=== PATIENT | male | born 1970 | race Caucasian/White ===

== ENCOUNTER 2017-03-21 09:40 | Observation (INO) ==
[2017-03-21] MEDS ORDERED: MORPHINE 2 MG/1 ML SYRINGE IV PRN (09:55)
[2017-03-21] MEDS ORDERED: ENOXAPARIN 100 MG/ML SYRINGE SUBCUT STA (09:55)
[2017-03-21] MEDS ORDERED: ASPIRIN 325 MG TABLET PO STA (09:55)
[2017-03-21] MEDS ORDERED: NITROGLYCERIN 2% OINT 1 INCH/GM PACK TOP STA (09:55)
[2017-03-21] MEDS ORDERED: ONDANSETRON 4 MG/2 ML VIAL IV PRN ×2 (09:55→11:37)
[2017-03-21] MEDS ORDERED: MORPHINE 2 MG/1 ML SYRINGE ONE (10:10)
[2017-03-21] MEDS ORDERED: NITROGLYCERIN 2% OINT 1 INCH/GM PACK TOP ONE (10:10)
[2017-03-21] MEDS ORDERED: ENOXAPARIN 120 MG/0.8 ML SYRINGE SUBCUT ONE (10:10)
[2017-03-21] MEDS ORDERED: ONDANSETRON 4 MG/2 ML VIAL ONE (10:10)
[2017-03-21] MEDS ORDERED: METOPROLOL TARTRATE 5 MG/5 ML VIAL IV STA (10:11)
[2017-03-21] MEDS ORDERED: METOPROLOL TARTRATE 5 MG/5 ML VIAL IV ONE (10:18)
[2017-03-21 10:36] LABS: Bilirubin,Total 0.9 MG/DL (0.2-1.0); Calcium 9.1 MG/DL (8.5-10.1); Osmolality,Calculated 278.5 MOS/KG (273-304); Potassium 3.7 MMOL/L (3.5-5.1); Total Protein 7.1 G/DL (6.4-8.3)
[2017-03-21 10:40] LABS: PT Patient Result 10.9 SECS; Partial Thromboplastin Time 24.8 SECS (0-40)
[2017-03-21 10:53] LABS: Basophils # 0.1 10*3/uL (0.0-0.2); Basophils % 0.9 % (0.0-0.8); Eosinophils # 0.2 10*3/uL (0.0-0.87); Eosinophils % 3.6 % (0.00-10.9); Hematocrit 44.5 VOL% (42.0-52.0); Immature Granulocytes % 0.6 %; Immature Granulocytes Absolute 0.04 #; Lymphocytes # 1.8 10*3/uL (1.4-4.0); Lymphocytes % 28.9 % (21.2-54.2); Mean Corpuscular HGB Conc 37.3 GM/DL (32-36); Mean Corpuscular Hemoglobin 32 PG (27-34); Mean Corpuscular Volume 85.4 FL (87-102); Mean Platelet Volume 10.9 FL (9.6-12.0); Monocytes # 0.4 10*3/uL (0.11-0.8); Monocytes % 6.6 % (1.7-12.7); Neutrophils # 3.8 10*3/uL (1.4-7.4); Neutrophils % 59.4 % (38.7-73.9); Platelet Count 169 T/CUMM (130-400); Red Blood Count 5.21 MC/CUMM (3.8-5.5); Red Cell Distribution Width 12.7 % (9.3-17.3); White Blood Count 6.4 T/CUMM (4-12)
[2017-03-21 10:54] LABS: Hemoglobin 16.6 GM/DL (14.0-18.0)
[2017-03-21] MEDS ORDERED: POTASSIUM CHLORIDE RIDER 10 MEQ in PREMIX 1 EACH IV PRN ×2 (11:05→11:48)
[2017-03-21] MEDS ORDERED: MAGNESIUM SULF RIDER 2 GM in PREMIX 1 EACH IV PRN ×3 (11:05→17:13)
[2017-03-21] MEDS ORDERED: SODIUM CHLORIDE 0.9% 1,000 ML IV SCH ×3 (11:30→17:13)
[2017-03-21] MEDS ORDERED: CARVEDILOL 3.125 MG TABLET PO SCH (11:30)
[2017-03-21] MEDS ORDERED: ATORVASTATIN 40 MG TABLET PO STA (11:33)
[2017-03-21] MEDS ORDERED: guaiFENesin/DM ER 600-30 MG TABLET PO PRN (11:37)
[2017-03-21] MEDS ORDERED: BISACODYL 5 MG TABLET PO PRN (11:37)
[2017-03-21] MEDS ORDERED: ZALEPLON 5 MG CAPSULE PO PRN (11:37)
[2017-03-21] MEDS ORDERED: ACETAMINOPHEN 325 MG TABLET PO PRN (11:37)
[2017-03-21] MEDS: SODIUM CHLORIDE 0.9% 1,000 ML IV SCH ×2 (11:42→19:45)
[2017-03-21] MEDS ORDERED: diphenhydrAMINE CAP 25 MG CAPSULE PO ONE (12:00)
[2017-03-21] MEDS ORDERED: DIAZEPAM 5 MG TABLET PO ONE (12:00)
[2017-03-21] MEDS ORDERED: NITROGLYCERIN 2% OINT 1 INCH/GM PACK TOP SCH (12:00)
[2017-03-21] MEDS ORDERED: DIAZEPAM 5 MG TABLET ONE (13:19)
[2017-03-21] MEDS ORDERED: diphenhydrAMINE CAP 50 MG CAPSULE ONE (13:19)
[2017-03-21] MEDS ORDERED: LIDOCAINE 100 MG/5 ML SYRINGE ONE (13:35)
[2017-03-21] MEDS ORDERED: LIDOCAINE 1% 20 ML VIAL ONE ×3 (13:35→13:42)
[2017-03-21] MEDS ORDERED: MEPERIDINE 25 MG/1 ML VIAL ONE (13:46)
[2017-03-21] MEDS ORDERED: MIDAZOLAM 2 MG/2 ML VIAL ONE (13:47)
[2017-03-21] MEDS ORDERED: ADENOSINE 90 MG/30 ML VIAL IV ONE (14:29)
[2017-03-21] MEDS ORDERED: TIROFIBAN 5,000 MCG/100 ML PREMIX IV ONE (14:46)
[2017-03-21] MEDS ORDERED: TIROFIBAN 5,000 MCG/100 ML PREMIX IV SCH (14:54)
[2017-03-21] MEDS ORDERED: TICAGRELOR 90 MG TABLET ONE (15:09)
[2017-03-21] MEDS ORDERED: HYDROmorphone 2 MG/1 ML VIAL IV PRN (15:29)
[2017-03-21] MEDS ORDERED: ACETAMINOPHEN/CODEINE 300-30 MG TABLET PO PRN (15:29)
[2017-03-21] MEDS ORDERED: NITROGLYCERIN SL 0.4 MG TABLET SL PRN (17:13)
[2017-03-21] MEDS ORDERED: traMADol 50 MG TABLET PO SCH (17:13)
[2017-03-21] MEDS ORDERED: MAGNESIUM SULF RIDER 4 GM in PREMIX 1 EACH IV PRN (17:13)
[2017-03-21] MEDS ORDERED: GABAPENTIN 100 MG CAPSULE PO SCH (17:13)
[2017-03-21] MEDS ORDERED: LORATADINE 10 MG TABLET PO PRN (17:13)
[2017-03-21 17:22] LABS: Troponin I Only 0.026 NG/ML (0.00-0.045)
[2017-03-21 18:29] LABS: Albumin 3.7 G/DL (3.4-5.0); Calcium 8.2 MG/DL (8.5-10.1); Osmolality,Calculated 278.5 MOS/KG (273-304); Potassium 3.9 MMOL/L (3.5-5.1); Total Protein 6.9 G/DL (6.4-8.3)
[2017-03-21] MEDS ORDERED: NAPROXEN 250 MG TABLET PO ONE (19:11)
[2017-03-21] MEDS: GABAPENTIN 300 MG CAPSULE PO SCH ×2 (19:45→22:07)
[2017-03-21] MEDS ORDERED: CAPTOPRIL 12.5 MG TABLET PO SCH (21:00)
[2017-03-21] MEDS ORDERED: SIMVASTATIN 20 MG TABLET PO SCH (21:00)
[2017-03-21] MEDS ORDERED: ACETAMINOPHEN 325 MG TABLET PO SCH ×2 (21:00)
[2017-03-21] MEDS ORDERED: SERTRALINE 25 MG TABLET PO SCH (21:00)
[2017-03-21] MEDS: TICAGRELOR 90 MG TABLET PO SCH (22:07)
[2017-03-21] MEDS: CAPTOPRIL 6.25 MG TABLET PO SCH (22:07)
[2017-03-21] MEDS: ACETAMINOPHEN 325 MG TABLET PO SCH (22:08)
[2017-03-21] MEDS: CARVEDILOL 3.125 MG TABLET PO SCH (22:14)
[2017-03-21] MEDS: traMADol 50 MG TABLET PO SCH (22:15)
[2017-03-22] MEDS: SODIUM CHLORIDE 0.9% 1,000 ML IV SCH (00:47)
[2017-03-22 01:30] LABS: Basophils # 0.1 10*3/uL (0.0-0.2); Basophils % 0.8 % (0.0-0.8); Eosinophils # 0.2 10*3/uL (0.0-0.87); Eosinophils % 1.6 % (0.00-10.9); Hematocrit 40.8 VOL% (42.0-52.0); Hemoglobin 14.7 GM/DL (14.0-18.0); Immature Granulocytes % 0.5 %; Immature Granulocytes Absolute 0.05 #; Lymphocytes # 2.6 10*3/uL (1.4-4.0); Lymphocytes % 24.5 % (21.2-54.2); Mean Corpuscular Hemoglobin 31 PG (27-34); Mean Corpuscular Volume 86.6 FL (87-102); Mean Platelet Volume 10.7 FL (9.6-12.0); Monocytes # 0.8 10*3/uL (0.11-0.8); Monocytes % 7.2 % (1.7-12.7); Neutrophils # 6.8 10*3/uL (1.4-7.4); Neutrophils % 65.4 % (38.7-73.9); Platelet Count 150 T/CUMM (130-400); Red Blood Count 4.71 MC/CUMM (3.8-5.5); White Blood Count 10.5 T/CUMM (4-12)
[2017-03-22 01:59] LABS: Troponin I Only 0.026 NG/ML (0.00-0.045)
[2017-03-22 02:01] LABS: Albumin 3.5 G/DL (3.4-5.0); Bilirubin,Total 0.9 MG/DL (0.2-1.0); Calcium 7.9 MG/DL (8.5-10.1); Osmolality,Calculated 280.3 MOS/KG (273-304); Potassium 3.8 MMOL/L (3.5-5.1); Risk Ratio 6.38; VLDL CHOLESTEROL 51.8 MG/DL
[2017-03-22 02:21] LABS: Albumin 3.5 G/DL (3.4-5.0); Bilirubin,Direct 0.2 MG/DL (0.0-0.20); Bilirubin,Indirect 0.6 MG/DL (0.0-1.0); Bilirubin,Total 0.8 MG/DL (0.2-1.0); Total Protein 6.2 G/DL (6.4-8.3)
[2017-03-22] MEDS ORDERED: LEVOTHYROXINE 25 MCG TABLET PO SCH (07:00)
[2017-03-22 08:56] LABS: Troponin I Only < 0.015 NG/ML (0.00-0.045)
[2017-03-22] MEDS: TICAGRELOR 90 MG TABLET PO SCH (08:57)
[2017-03-22] MEDS: traMADol 50 MG TABLET PO SCH (08:57)
[2017-03-22] MEDS: ACETAMINOPHEN 325 MG TABLET PO SCH (08:57)
[2017-03-22] MEDS: CARVEDILOL 3.125 MG TABLET PO SCH (08:57)
[2017-03-22] MEDS: CAPTOPRIL 6.25 MG TABLET PO SCH (08:57)
[2017-03-22] MEDS: GABAPENTIN 300 MG CAPSULE PO SCH (08:58)
[2017-03-22] MEDS ORDERED: ASPIRIN CHEW 81 MG TABLET PO SCH (09:00)
[2017-03-22] MEDS ORDERED: FUROSEMIDE 20 MG TABLET PO SCH ×2 (09:00)
[2017-03-22] MEDS ORDERED: PANTOPRAZOLE 40 MG TABLET PO SCH (09:00)
[2017-03-22 11:50] VITALS: BP 131/80
[2017-03-22] MEDS ORDERED: ROSUVASTATIN 10 MG TABLET PO SCH (21:00)
== END 2017-03-22 15:27 | disposition home or self-care (01) ==
LOC: EDUNIT# → EDBD → N.ED 09:40 → INTOOBSV 10:42 → N.TELES 13:28
PROVIDERS: ADMIT Internal Medicine Cardiovascular Disease; ATTEND Internal Medicine Cardiovascular Disease
PROC: CLCCHCL (ICD-10-PCS; 2017-03-21 14:15)

== ENCOUNTER 2019-06-03 15:34 | Observation (INO) ==
[2019-06-03] MEDS ORDERED: ASPIRIN 325 MG TABLET PO STA (16:01)
[2019-06-03] MEDS ORDERED: NITROGLYCERIN SL 0.4 MG TABLET SL PRN (16:01)
[2019-06-03] MEDS ORDERED: ENOXAPARIN 100 MG/ML SYRINGE SUBCUT STA (16:01)
[2019-06-03 16:10] LABS: Basophils # 0.1 10*3/uL (0.0-0.2); Basophils % 1.1 % (0.0-0.8); Eosinophils # 0.3 10*3/uL (0.0-0.87); Eosinophils % 3.2 % (0.00-10.9); Hematocrit 43.3 VOL% (42.0-52.0); Hemoglobin 15.1 GM/DL (14.0-18.0); Immature Granulocytes % 0.2 %; Immature Granulocytes Absolute 0.02 #; Lymphocytes # 2.7 10*3/uL (1.4-4.0); Lymphocytes % 31.9 % (21.2-54.2); Mean Corpuscular HGB Conc 34.9 GM/DL (32-36); Mean Corpuscular Volume 86.4 FL (87-102); Mean Platelet Volume 10.4 FL (9.6-12.0); Monocytes % 8.6 % (1.7-12.7); Platelet Count 150 T/CUMM (130-400); Red Blood Count 5.01 MC/CUMM (3.8-5.5); Red Cell Distribution Width 13.2 % (9.3-17.3); White Blood Count 8.4 T/CUMM (4-12)
[2019-06-03 16:38] LABS: Osmolality,Calculated 272.8 MOS/KG (273-304)
[2019-06-03] MEDS ORDERED: ONDANSETRON 4 MG/2 ML VIAL IV PRN (17:44)
[2019-06-03] MEDS ORDERED: MAGNESIUM SULF RIDER 4 GM in PREMIX 1 EACH IV PRN (17:44)
[2019-06-03] MEDS ORDERED: MORPHINE 4 MG/1 ML VIAL IV PRN (17:44)
[2019-06-03] MEDS ORDERED: ZALEPLON 5 MG CAPSULE PO PRN (17:44)
[2019-06-03] MEDS ORDERED: POTASSIUM CHLORIDE 20 MEQ TABLET PO PRN (17:44)
[2019-06-03] MEDS ORDERED: MAGNESIUM SULF RIDER 2 GM in PREMIX 1 EACH IV PRN (17:44)
[2019-06-03] MEDS: carvediloL 3.125 MG TABLET PO SCH (21:04)
[2019-06-03] MEDS: IMIPRAMINE 25 MG TABLET PO SCH (21:04)
[2019-06-03] MEDS: SODIUM CHLORIDE 0.45% 1,000 ML IV SCH (21:04)
[2019-06-03 21:24] LABS: Apearance,Urine CLEAR (Clear); Bilirubin,Urine Negative (Negative); Blood, Urine Negative (Negative); Glucose,Urine (UA) Negative (Negative); Hyaline Casts,Urine 1 /LPF (0-3); Ketones,Urine Negative (Negative); Mucus,Urine Many /LPF (Occasional); Nitrite,Urine Negative (Negative); Protein,Urine Negative; Squamous Epithelial Cell,Urine Occasional /HPF (0-10); Urine Color Yellow (Yellow); Urine Specific Gravity 1.023 (1.001-1.035); WBC,Urine <1 /HPF (0-6)
[2019-06-04] MEDS: SODIUM CHLORIDE 0.45% 1,000 ML IV SCH ×3 (04:37→14:09)
[2019-06-04] MEDS ORDERED: ENOXAPARIN 100 MG/ML SYRINGE SUBCUT SCH (05:00)
[2019-06-04] MEDS: LEVOTHYROXINE 25 MCG TABLET PO SCH (06:06)
[2019-06-04] MEDS ORDERED: CLOPIDOGREL 75 MG TABLET PO SCH (09:00)
[2019-06-04] MEDS ORDERED: DIAZEPAM 5 MG TABLET PO ONE (09:01)
[2019-06-04] MEDS ORDERED: MAGNESIUM SULF RIDER 2 GM in PREMIX 1 EACH IV PRN (09:01)
[2019-06-04] MEDS ORDERED: POTASSIUM CHLORIDE RIDER 10 MEQ in PREMIX 1 EACH IV PRN (09:01)
[2019-06-04] MEDS ORDERED: diphenhydrAMINE CAP 25 MG CAPSULE PO ONE (09:01)
[2019-06-04] MEDS ORDERED: ASPIRIN CHEW 81 MG TABLET PO ONE (09:16)
[2019-06-04] MEDS ORDERED: ASPIRIN 325 MG TABLET ONE (09:28)
[2019-06-04] MEDS ORDERED: LIDOCAINE 1% 20 ML VIAL ONE (10:00)
[2019-06-04] MEDS ORDERED: MIDAZOLAM 2 MG/2 ML VIAL ONE (10:12)
[2019-06-04] MEDS ORDERED: fentaNYL 100 MCG/2 ML VIAL ONE (10:13)
[2019-06-04] MEDS ORDERED: TIROFIBAN 5,000 MCG/100 ML PREMIX IV ONE (11:02)
[2019-06-04] MEDS ORDERED: HEPARIN 5,000 UNIT/1 ML VIAL ONE (11:02)
[2019-06-04] MEDS: TIROFIBAN 5,000 MCG/100 ML PREMIX IV SCH ×2 (11:10→16:08)
[2019-06-04] MEDS ORDERED: TICAGRELOR 90 MG TABLET ONE (11:38)
[2019-06-04] MEDS: PANTOPRAZOLE 40 MG TABLET PO SCH (12:12)
[2019-06-04] MEDS: carvediloL 3.125 MG TABLET PO SCH ×2 (12:12→16:08)
[2019-06-04] MEDS: FUROSEMIDE 20 MG TABLET PO SCH (12:12)
[2019-06-04] MEDS: ROSUVASTATIN 10 MG TABLET PO SCH (12:12)
[2019-06-04] MEDS: ACETAMINOPHEN 325 MG TABLET PO SCH ×2 (12:13→22:46)
[2019-06-04] MEDS: LOSARTAN 25 MG TABLET PO SCH (12:13)
[2019-06-04 13:51] LABS: Risk Ratio 5.06
[2019-06-04 13:52] LABS: Troponin I < 0.015 NG/ML (0.00-0.045)
[2019-06-04] MEDS: GABAPENTIN 100 MG CAPSULE PO SCH ×2 (16:08→22:47)
[2019-06-04 20:48] LABS: Troponin I < 0.015 NG/ML (0.00-0.045)
[2019-06-04 21:47] LABS: Hematocrit 43.7 VOL% (42.0-52.0); Hemoglobin 15.5 GM/DL (14.0-18.0)
[2019-06-04] MEDS: IMIPRAMINE 25 MG TABLET PO SCH (22:47)
[2019-06-04] MEDS: TICAGRELOR 90 MG TABLET PO SCH (22:47)
[2019-06-05] MEDS: TIROFIBAN 5,000 MCG/100 ML PREMIX IV SCH ×4 (00:15→16:47)
[2019-06-05 04:56] LABS: Basophils # 0.1 10*3/uL (0.0-0.2); Basophils % 0.7 % (0.0-0.8); Eosinophils # 0.3 10*3/uL (0.0-0.87); Eosinophils % 3.2 % (0.00-10.9); Hematocrit 43.9 VOL% (42.0-52.0); Hemoglobin 15.2 GM/DL (14.0-18.0); Immature Granulocytes % 0.4 %; Immature Granulocytes Absolute 0.03 #; Lymphocytes # 2.1 10*3/uL (1.4-4.0); Lymphocytes % 25.4 % (21.2-54.2); Mean Corpuscular HGB Conc 34.6 GM/DL (32-36); Mean Corpuscular Volume 86.6 FL (87-102); Mean Platelet Volume 10.9 FL (9.6-12.0); Monocytes % 8.4 % (1.7-12.7); Neutrophils % 61.9 % (38.7-73.9); Platelet Count 117 T/CUMM (130-400); Red Blood Count 5.07 MC/CUMM (3.8-5.5); Red Cell Distribution Width 13.4 % (9.3-17.3); White Blood Count 8.4 T/CUMM (4-12)
[2019-06-05 05:24] LABS: Calcium 8.5 MG/DL (8.5-10.1); Osmolality,Calculated 273.7 MOS/KG (273-304)
[2019-06-05 05:26] LABS: Troponin I < 0.015 NG/ML (0.00-0.045)
[2019-06-05] MEDS: LEVOTHYROXINE 25 MCG TABLET PO SCH (06:21)
[2019-06-05] MEDS ORDERED: ASPIRIN EC 81 MG TABLET PO SCH (09:00)
[2019-06-05] MEDS: GABAPENTIN 100 MG CAPSULE PO SCH ×2 (09:26→16:35)
[2019-06-05] MEDS: LOSARTAN 25 MG TABLET PO SCH (09:26)
[2019-06-05] MEDS: carvediloL 3.125 MG TABLET PO SCH ×2 (09:26→16:35)
[2019-06-05] MEDS: FUROSEMIDE 20 MG TABLET PO SCH (09:26)
[2019-06-05] MEDS: ACETAMINOPHEN 325 MG TABLET PO SCH (09:26)
[2019-06-05] MEDS: ROSUVASTATIN 10 MG TABLET PO SCH (09:26)
[2019-06-05] MEDS: TICAGRELOR 90 MG TABLET PO SCH (09:27)
[2019-06-05] MEDS: PANTOPRAZOLE 40 MG TABLET PO SCH (09:27)
[2019-06-05 15:46] VITALS: BP 137/71
== END 2019-06-05 18:22 | disposition home or self-care (01) ==
LOC: EDBD → EDUNIT# → N.ED 15:34 → N.EDINP 15:34 → N.2W 19:17 → N.TELEN 22:22
PROVIDERS: ADMIT Internal Medicine Cardiovascular Disease; ATTEND Internal Medicine Cardiovascular Disease
PROC: CLCCHCL (ICD-10-PCS; 2019-06-04 09:45)

== ENCOUNTER 2020-03-09 09:19 | Observation (INO) ==
[2020-03-09] MEDS ORDERED: NITROGLYCERIN 2% OINT 1 INCH/GM PACK TOP STA (09:43)
[2020-03-09] MEDS ORDERED: ASPIRIN 325 MG TABLET PO STA (09:43)
[2020-03-09] MEDS ORDERED: NITROGLYCERIN SL 0.4 MG TABLET SL PRN ×2 (09:43→10:54)
[2020-03-09 09:56] LABS: PT Patient Result 11.1 SECS (9.8-11.9); Partial Thromboplastin Time 27.9 SECS (23.9-33.8)
[2020-03-09 10:05] LABS: Basophils # 0.1 10*3/uL (0.0-0.2); Basophils % 1.2 % (0.0-0.8); Eosinophils # 0.3 10*3/uL (0.0-0.87); Eosinophils % 4.3 % (0.00-10.9); Immature Granulocytes % 0.3 %; Immature Granulocytes Absolute 0.02 #; Lymphocytes # 2.6 10*3/uL (1.4-4.0); Lymphocytes % 33.1 % (21.2-54.2); Mean Corpuscular HGB Conc 36.7 GM/DL (32-36); Mean Corpuscular Volume 83.2 FL (87-102); Mean Platelet Volume 10.4 FL (9.6-12.0); Monocytes % 6.8 % (1.7-12.7); Neutrophils % 54.3 % (38.7-73.9); Platelet Count 152 T/CUMM (130-400); Red Blood Count 5.41 MC/CUMM (3.8-5.5); Red Cell Distribution Width 13.2 % (9.3-17.3); White Blood Count 7.8 T/CUMM (4-12)
[2020-03-09 10:06] LABS: Hemoglobin 16.5 GM/DL (14.0-18.0)
[2020-03-09] MEDS ORDERED: ENOXAPARIN 120 MG/0.8 ML SYRINGE SUBCUT STA (10:33)
[2020-03-09 10:40] LABS: Albumin 4.1 G/DL (3.4-5.0); Bilirubin,Total 1.7 MG/DL (0.2-1.0); Calcium 8.8 MG/DL (8.5-10.1); Osmolality,Calculated 281.3 MOS/KG (273-304); Total Protein 7.8 G/DL (6.4-8.3)
[2020-03-09] MEDS ORDERED: DOCUSATE SODIUM 100 MG CAPSULE PO PRN (10:52)
[2020-03-09] MEDS ORDERED: ONDANSETRON 4 MG/2 ML VIAL IV PRN ×2 (10:52→10:53)
[2020-03-09] MEDS ORDERED: MAGNESIUM SULF RIDER 4 GM in PREMIX 1 EACH IV PRN ×2 (10:52→10:53)
[2020-03-09] MEDS ORDERED: ALUMINUM/MAGNES/SIMETH MAX STR 30 ML UDCUP PO PRN (10:52)
[2020-03-09] MEDS ORDERED: MAGNESIUM SULF RIDER 2 GM in PREMIX 1 EACH IV PRN ×2 (10:52→10:53)
[2020-03-09] MEDS ORDERED: MORPHINE 4 MG/1 ML VIAL IV PRN ×2 (10:52→10:53)
[2020-03-09] MEDS ORDERED: PROMETHAZINE 25 MG TABLET PO PRN (10:52)
[2020-03-09] MEDS ORDERED: ZALEPLON 5 MG CAPSULE PO PRN (10:52)
[2020-03-09] MEDS ORDERED: diphenhydrAMINE CAP 25 MG CAPSULE PO PRN (10:52)
[2020-03-09] MEDS ORDERED: hydrALAZINE 20 MG/1 ML VIAL IV PRN (10:52)
[2020-03-09] MEDS ORDERED: ACETAMINOPHEN 325 MG TABLET PO PRN (10:52)
[2020-03-09] MEDS ORDERED: guaiFENesin/DM ER 600-30 MG TABLET PO PRN (10:52)
[2020-03-09] MEDS ORDERED: POTASSIUM CHLORIDE 20 MEQ TABLET PO PRN (10:52)
[2020-03-09] MEDS ORDERED: SODIUM CHLORIDE 0.9% 1,000 ML IV SCH (11:00)
[2020-03-09] MEDS ORDERED: SODIUM CHLORIDE 0.45% 1,000 ML IV SCH (11:00)
[2020-03-09 12:21] LABS: Hepatitis B Core IgM Quant 0.18 Index; Hepatitis B Surface Ag Quant < 0.10 Index; Hepatitis B Surface Ag Result Negative (Negative); Hepatitis C Virus Ab Quant 0.09 Index; Hepatitis C Virus Ab Result Negative (Negative)
[2020-03-09 12:24] VITALS: BP 108/61
[2020-03-09] MEDS ORDERED: ACETAMINOPHEN 325 MG TABLET PO SCH (13:00)
[2020-03-09] MEDS ORDERED: GABAPENTIN 100 MG CAPSULE PO SCH (15:00)
[2020-03-09] MEDS ORDERED: KETOROLAC 30 MG/1 ML VIAL IV STA (15:04)
[2020-03-09] MEDS ORDERED: TICAGRELOR 90 MG TABLET PO SCH (21:00)
[2020-03-09] MEDS ORDERED: carvediloL 3.125 MG TABLET PO SCH (21:00)
[2020-03-09] MEDS ORDERED: IMIPRAMINE 25 MG TABLET PO SCH (21:00)
[2020-03-10] MEDS ORDERED: LEVOTHYROXINE 25 MCG TABLET PO SCH (07:00)
[2020-03-10] MEDS ORDERED: LOSARTAN 25 MG TABLET PO SCH (09:00)
[2020-03-10] MEDS ORDERED: GABAPENTIN 100 MG CAPSULE PO SCH (09:00)
[2020-03-10] MEDS ORDERED: ASPIRIN CHEW 81 MG TABLET PO SCH (09:00)
[2020-03-10] MEDS ORDERED: FUROSEMIDE 20 MG TABLET PO SCH (09:00)
[2020-03-10] MEDS ORDERED: ROSUVASTATIN 10 MG TABLET PO SCH (09:00)
[2020-03-10] MEDS ORDERED: PANTOPRAZOLE 40 MG TABLET PO SCH ×2 (09:00)
[2020-03-10] MEDS ORDERED: SERTRALINE 25 MG TABLET PO SCH (09:00)
== END 2020-03-09 16:11 | disposition home or self-care (01) ==
LOC: N.ED 09:19 → N.EDINP 09:19
PROVIDERS: ADMIT Internal Medicine Cardiovascular Disease; ATTEND Internal Medicine Cardiovascular Disease

== ENCOUNTER 2022-01-09 20:09 | Observation (INO) ==
[2022-01-09 20:40] LABS: Basophils # 0.1 10*3/uL (0.0-0.2); Basophils % 0.8 % (0.0-0.8); Eosinophils # 0.3 10*3/uL (0.0-0.87); Eosinophils % 3.2 % (0.00-10.9); Hemoglobin 16.1 GM/DL (14.0-18.0); Immature Granulocytes % 0.2 %; Immature Granulocytes Absolute 0.02 #; Lymphocytes # 3.2 10*3/uL (1.4-4.0); Lymphocytes % 31.9 % (21.2-54.2); Mean Corpuscular HGB Conc 35.8 GM/DL (32-36); Mean Corpuscular Volume 87.7 FL (87-102); Mean Platelet Volume 10.4 FL (9.6-12.0); Monocytes # 0.7 10*3/uL (0.11-0.8); Monocytes % 6.8 % (1.7-12.7); Neutrophils % 57.1 % (38.7-73.9); Platelet Count 123 T/CUMM (130-400); Red Blood Count 5.13 MC/CUMM (3.8-5.5); Red Cell Distribution Width 13.8 % (9.3-17.3); White Blood Count 9.9 T/CUMM (4-12)
[2022-01-09 20:51] LABS: INR 1.1; PT Patient Result 11.9 SECS (10.1-12.1)
[2022-01-09 20:58] LABS: Albumin 3.8 G/DL (3.4-5.0); Bilirubin,Total 1.4 MG/DL (0.20-1.00); Calcium 8.9 MG/DL (8.5-10.1); Potassium 3.6 MMOL/L (3.5-5.1); Total Protein 7.8 G/DL (6.4-8.2)
[2022-01-09] MEDS ORDERED: ONDANSETRON 4 MG/2 ML VIAL IV ONE (23:33)
[2022-01-09] MEDS ORDERED: MORPHINE 2 MG/1 ML SYRINGE IV STA (23:33)
[2022-01-10] MEDS ORDERED: MORPHINE 2 MG/1 ML SYRINGE IV PRN (01:29)
[2022-01-10] MEDS ORDERED: ONDANSETRON 4 MG/2 ML VIAL IV PRN (01:29)
[2022-01-10] MEDS: LEVOTHYROXINE 25 MCG TABLET PO SCH (05:57)
[2022-01-10 07:14] LABS: Albumin 3.2 G/DL (3.4-5.0); Bilirubin,Total 1.6 MG/DL (0.20-1.00); Calcium 8.8 MG/DL (8.5-10.1); Osmolality,Calculated 280.3 MOS/KG (273-304); Potassium 3.4 MMOL/L (3.5-5.1); Risk Ratio 5.87; Total Protein 6.9 G/DL (6.4-8.2); VLDL Cholesterol 31.4 MG/DL
[2022-01-10] MEDS ORDERED: POTASSIUM CHLORIDE RIDER 10 MEQ/100 ML PREMIX IV PRN ×2 (07:24→07:26)
[2022-01-10] MEDS ORDERED: MAGNESIUM SULF RIDER 2 GM/50 ML PREMIX IV PRN ×2 (07:24→07:26)
[2022-01-10] MEDS ORDERED: SODIUM CHLORIDE 0.9% 1,000 ML IV SCH (07:30)
[2022-01-10] MEDS ORDERED: HEPARIN/NACL 0.9% 2 UNITS/ML 2,000 UNIT/1,000 ML BAG IV ONE (07:57)
[2022-01-10] MEDS ORDERED: diphenhydrAMINE CAP 50 MG CAPSULE PO ONE (08:00)
[2022-01-10] MEDS ORDERED: DIAZEPAM 5 MG TABLET PO ONE (08:00)
[2022-01-10] MEDS ORDERED: NITROGLYCERIN DRIP 50 MG/250 ML BOTTLE IV ONE (08:22)
[2022-01-10] MEDS ORDERED: VERAPAMIL 5 MG/2 ML VIAL ONE (08:22)
[2022-01-10] MEDS ORDERED: MIDAZOLAM 2 MG/2 ML VIAL ONE (08:22)
[2022-01-10] MEDS ORDERED: fentaNYL 100 MCG/2 ML VIAL ONE (08:22)
[2022-01-10] MEDS ORDERED: ASPIRIN 325 MG TABLET ONE (08:38)
[2022-01-10] MEDS ORDERED: ENOXAPARIN 60 MG/0.6 ML SYRINGE ONE (08:52)
[2022-01-10] MEDS: PANTOPRAZOLE 40 MG TABLET PO SCH (10:23)
[2022-01-10] MEDS: FUROSEMIDE 20 MG TABLET PO SCH (10:24)
[2022-01-10] MEDS: LOSARTAN 25 MG TABLET PO SCH (10:24)
[2022-01-10] MEDS: CLOPIDOGREL 75 MG TABLET PO SCH (10:24)
[2022-01-10] MEDS: ASPIRIN CHEW 81 MG TABLET PO SCH (10:24)
[2022-01-10] MEDS: carvediloL 3.125 MG TABLET PO SCH ×2 (10:24→21:34)
[2022-01-10] MEDS: ENOXAPARIN 40 MG/0.4 ML SYRINGE SUBCUT SCH (10:25)
[2022-01-10] MEDS ORDERED: ROSUVASTATIN 10 MG TABLET PO SCH (21:00)
[2022-01-11 04:43] LABS: Basophils # 0.1 10*3/uL (0.0-0.2); Basophils % 0.9 % (0.0-0.8); Eosinophils # 0.3 10*3/uL (0.0-0.87); Eosinophils % 3.7 % (0.00-10.9); Hematocrit 41.6 VOL% (42.0-52.0); Hemoglobin 14.8 GM/DL (14.0-18.0); Immature Granulocytes % 0.1 %; Immature Granulocytes Absolute 0.01 #; Lymphocytes # 2.3 10*3/uL (1.4-4.0); Lymphocytes % 33.8 % (21.2-54.2); Mean Corpuscular HGB Conc 35.6 GM/DL (32-36); Mean Corpuscular Volume 88.9 FL (87-102); Mean Platelet Volume 10.9 FL (9.6-12.0); Monocytes # 0.6 10*3/uL (0.11-0.8); Monocytes % 9.3 % (1.7-12.7); Neutrophils % 52.2 % (38.7-73.9); Platelet Count 97 T/CUMM (130-400); Red Blood Count 4.68 MC/CUMM (3.8-5.5); Red Cell Distribution Width 13.8 % (9.3-17.3); White Blood Count 6.7 T/CUMM (4-12)
[2022-01-11 05:05] LABS: Calcium 9.1 MG/DL (8.5-10.1); Osmolality,Calculated 278.4 MOS/KG (273-304); Potassium 3.5 MMOL/L (3.5-5.1)
[2022-01-11 05:17] LABS: Platelet Estimate Decreased
[2022-01-11] MEDS: LEVOTHYROXINE 25 MCG TABLET PO SCH ×2 (05:52→09:21)
[2022-01-11] MEDS: carvediloL 3.125 MG TABLET PO SCH (09:20)
[2022-01-11] MEDS: PANTOPRAZOLE 40 MG TABLET PO SCH (09:20)
[2022-01-11] MEDS: ENOXAPARIN 40 MG/0.4 ML SYRINGE SUBCUT SCH (09:21)
[2022-01-11] MEDS: ASPIRIN CHEW 81 MG TABLET PO SCH (09:21)
[2022-01-11] MEDS: LOSARTAN 25 MG TABLET PO SCH (09:21)
[2022-01-11] MEDS: FUROSEMIDE 20 MG TABLET PO SCH (09:21)
[2022-01-11] MEDS: CLOPIDOGREL 75 MG TABLET PO SCH (09:21)
[2022-01-11 12:35] VITALS: BP 121/72
== END 2022-01-11 11:32 | disposition home or self-care (01) ==
LOC: N.TELES 20:09 → N.ED 20:09 → SUATTDRO 01-10 01:29 → N.TELES 01-10 02:22
PROVIDERS: ADMIT Internal Medicine; ATTEND Internal Medicine
PROC: CLCCHCL (ICD-10-PCS; 2022-01-10 09:15)